=== PATIENT | female | born 1985 | race Caucasian/White ===

== ENCOUNTER 2016-10-21 13:04 | Emergency (ER) | payer OTHER ==
[~2016-10-21] VITALS: Ht 160 cm; Wt 72.6 kg
[~2016-10-21 13:04] MED LIST: ACET50TA PO; IBUP60TA PO; PREN1TAB11 PO; ZYRT10CA PO
[2016-10-21] MEDS ORDERED: NS 1,000 ML IV ONE (14:15)
[2016-10-21 14:41] LABS: BASO % 0.2 % (0.0-1.0); EOS # 0.2 K/mm3 (0.0-0.50); EOS % 3.2 % (0.0-3.0); LARGE UNSTAINED CELL # 0.1 K/mm3 (0.0-0.4); LARGE UNSTAINED CELL % 1.6 % (0.0-4.0); LYMPH # 1.5 K/mm3 (1.5-6.5); LYMPH % 20.8 % (24.0-44.0); MEAN CORPUSCULAR HEMOGLOBIN 30.7 pg (27.0-33.0); MEAN CORPUSCULAR HGB CONC 33.8 g/dl (32.0-36.5); MEAN CORPUSCULAR VOLUME 90.8 fl (80.0-96.0); MONO # 0.3 K/mm3 (0.0-0.8); MONO % 4.2 % (0.0-5.0); NEUTROPHILS # 5.1 K/mm3 (1.8-7.7); PLATELET COUNT, AUTOMATED 268 k/mm3 (150-450); RED CELL DISTRIBUTION WIDTH 12.5 % (11.5-14.5); WHITE BLOOD COUNT 7.2 K/mm3 (4.0-10.0)
--- NOTE | 2016-10-21 14:48 | REP ---
PELVIC ULTRASOUND: Real-time sonographic evaluation of the pelvis is performed utilizing transabdominal technique. The bladder measures 8.9 x 5.7 x 8.4 cm. The uterus measures 8.3 x 3.8 x 3.9 cm. Endometrial thickness is 3 mm with no endometrial fluid collection. Right ovary measures 4.1 x 3.3 x 3.5 cm and the left ovary 3.3 x 2.4 x 2.2 cm. There is a cystic structure in the right ovary 2.3 x 2.9 x 2.3 cm. There is no other evidence of adnexal mass or free fluid. There is blood flow seen in each ovary with duplex Doppler evaluation with no torsion, RI right ovary is 0.41 and left ovary 0.56. IMPRESSION: Right ovarian cyst with a maximum diameter of 2.9 cm. No torsion or free fluid. Signed by Phi Lares MD 10/21/2016 05:45 P
[2016-10-21 15:04] LABS: CONTROL LINE HCG INT CTR LINE PRESENT
[2016-10-21 15:14] LABS: ALBUMIN 3.8 GM/DL (3.2-5.2); ALBUMIN/GLOBULIN RATIO 1.12 (1.00-1.93); ALKALINE PHOSPHATASE 96 U/L (45-117); ALT/SGPT 46 U/L (12-78); ANION GAP 6 MEQ/L (8-16); AST/SGOT 30 U/L (15-37); BILIRUBIN,DIRECT < 0.1 MG/DL (0.0-0.2); BILIRUBIN,TOTAL 0.3 MG/DL (0.2-1.0); BLOOD UREA NITROGEN 15 MG/DL (7-18); CALCIUM LEVEL 8.5 MG/DL (8.5-10.1); CARBON DIOXIDE LEVEL 29 MEQ/L (21-32); CHLORIDE LEVEL 105 MEQ/L (98-107); GLOMERULAR FILTRATION RATE > 60.0 (>60); GLUCOSE, FASTING 98 MG/DL (70-105); POTASSIUM SERUM 4.2 MEQ/L (3.5-5.1); SODIUM LEVEL 140 MEQ/L (136-145); TOTAL PROTEIN 7.2 GM/DL (6.4-8.2)
[2016-10-21] MEDS ORDERED: NORCO, ANEXSIA 5/325MG TABLET (HYDROcodone/ACETAMINOPHEN) PO ONE (15:30)
[2016-10-21 15:42] VITALS: BP 112/62
== END 2016-10-21 15:49 | disposition home or self-care (01) ==
LOC: M ED 14:03
DX: N83.201 Unspecified ovarian cyst, right side (principal); R19.7 Diarrhea, unspecified; Z88.8 Allergy status to other drugs, medicaments and biological substances

== ENCOUNTER → 2016-10-28 | Outpatient (CLI) | payer OTHER ==
[2016-10-28 19:29] LABS: FREE T4 1.04 NG/DL (0.76-1.46)
[2016-10-31 00:07] LABS: Lyme Disease IgG/IgM Antibodie <0.91 ISR (0.00-0.90); Lyme Disease IgM Ab Quantitati <0.80 index (0.00-0.79)
== END ==
LOC: M SMT 14:56
PROVIDERS: ATTEND Physician Assistant
DX: R63.5 Abnormal weight gain (principal); M25.50 Pain in unspecified joint

== ENCOUNTER → 2017-01-15 | Outpatient (REF) | payer OTHER ==
[~2017-01-15] MED LIST changes: +FOLI1TAB4; +MULTTAB20 PO
[2017-01-15 17:44] LABS: HCG, SERUM QUANTITATIVE 464 MIU/ML
[2017-01-15 17:49] LABS: MEAN CORPUSCULAR HEMOGLOBIN 30.8 pg (27.0-33.0); MEAN CORPUSCULAR HGB CONC 34.5 g/dl (32.0-36.5); MEAN CORPUSCULAR VOLUME 89.1 fl (80.0-96.0); RED CELL DISTRIBUTION WIDTH 12.7 % (11.5-14.5); WHITE BLOOD COUNT 6.3 K/mm3 (4.0-10.0)
[2017-01-17 09:23] LABS: HBsAg Prenatal NEGATIVE (NEGATIVE)
== END ==
LOC: M LAB REF 16:41
PROVIDERS: ATTEND Advanced Practice Midwife
DX: O36.80X0 Pregnancy with inconclusive fetal viability, not applicable or unspecified (principal); Z3A.00 Weeks of gestation of pregnancy not specified

== ENCOUNTER → 2017-02-10 | Outpatient (CLI) | payer OTHER ==
[2017-02-10 18:15] LABS: BASO % 0.4 % (0.0-1.0); EOS # 0.2 K/mm3 (0.0-0.50); EOS % 2.5 % (0.0-3.0); LARGE UNSTAINED CELL # 0.1 K/mm3 (0.0-0.4); LARGE UNSTAINED CELL % 1.4 % (0.0-4.0); LYMPH # 2.1 K/mm3 (1.5-6.5); LYMPH % 25.2 % (24.0-44.0); MEAN CORPUSCULAR HEMOGLOBIN 31.2 pg (27.0-33.0); MEAN CORPUSCULAR HGB CONC 34.4 g/dl (32.0-36.5); MEAN CORPUSCULAR VOLUME 90.9 fl (80.0-96.0); MONO # 0.4 K/mm3 (0.0-0.8); MONO % 4.6 % (0.0-5.0); NEUTROPHILS # 5.1 K/mm3 (1.8-7.7); NEUTROPHILS % 65.9 % (36.0-66.0); PLATELET COUNT, AUTOMATED 270 k/mm3 (150-450); RED CELL DISTRIBUTION WIDTH 12.9 % (11.5-14.5); WHITE BLOOD COUNT 7.7 K/mm3 (4.0-10.0)
[2017-02-12 10:43] LABS: HBsAg Prenatal NEGATIVE (NEGATIVE)
== END ==
LOC: M SMT 11:28
PROVIDERS: ATTEND Advanced Practice Midwife
DX: Z34.81 Encounter for supervision of other normal pregnancy, first trimester (principal)

== ENCOUNTER 2017-03-27 09:07 | Emergency (ER) | payer OTHER ==
[~2017-03-27] VITALS: Ht 160 cm; Wt 77.0 kg
[~2017-03-27 09:07] MED LIST changes: -FOLI1TAB4; -MULTTAB20 PO
[2017-03-27] MEDS ORDERED: FOLI1TAB4 (09:13)
[2017-03-27] MEDS ORDERED: MULTTAB20 PO (09:19)
[2017-03-27] MEDS ORDERED: ONDANSETRON 4MG/2ML VIAL (J2405) IV ONE (11:15)
--- NOTE | 2017-03-27 12:06 | REP ---
Obstetric ultrasound, stat request for cramping: There are no prior studies. Transabdominal imaging is performed. There is a twin diamniotic, monochorionic gestation. The placenta is posterior and grade zero. At the inferior margin of the placenta lies completely across the internal cervical os indicating a complete placenta previa. Twin A: Twin A is in a vertex presentation on the maternal left. The amniotic fluid volume subjectively is normal. Gestational age by the ultrasound today is 15 weeks 2 days. Gestational age by LMP is 14 weeks 5 days. The GALE is 09/20/2017 based on LMP. heart rate is 149 beats per minute. weight is 121 grams phrases 0 pounds, 4 ounces). This is the 70th percentile for 14 weeks 5 days. Twin B: Twin B is in a breech presentation on the maternal right. The amniotic fluid volume subjectively is normal. By the ultrasound today the gestational age is 13 weeks 0 days. By LMP the gestational age is 14 weeks 5 days. GALE based on LMP is 09/20/2017. heart rate is 144 beats per minute. The weight is 103 grams was a 0 pounds, 3 ounces). This is the 30th percentile for 14 weeks 5 days. The maternal adnexa and cul-de-sac are unremarkable. Impression: Diamniotic, monochorionic twin gestation and 14 weeks 5 days gestational age. The placenta is posterior, however the inferior margin of the placenta completely crosses the internal cervical os indicating a complete placenta previa. Signed by Phi Peña MD 03/27/2017 11:58 A
[2017-03-27 12:22] LABS: BASO % 0.1 % (0.0-1.0); EOS % 0.2 % (0.0-3.0); IMMATURE GRANULOCYTE % 0.2 % (0-0); LYMPH # 0.8 10^3/uL (1.5-4.5); LYMPH % 8.7 % (24.0-44.0); MEAN CORPUSCULAR HEMOGLOBIN 30.4 pg (27.0-33.0); MEAN CORPUSCULAR HGB CONC 34.5 g/dl (32.0-36.5); MONO # 0.3 10^3/uL (0.0-0.8); NEUTROPHILS # 7.9 10^3/uL (1.8-7.7); NEUTROPHILS % 87.8 % (36.0-66.0); PLATELET COUNT, AUTOMATED 242 10^3/uL (150-450); RED CELL DISTRIBUTION WIDTH 12.8 % (11.5-14.5)
[2017-03-27] MEDS ORDERED: NS 1,000 ML IV ONE (12:45)
[2017-03-27 13:07] LABS: ALBUMIN 3.2 GM/DL (3.2-5.2); ALBUMIN/GLOBULIN RATIO 0.82 (1.00-1.93); ALKALINE PHOSPHATASE 69 U/L (45-117); ALT/SGPT 26 U/L (12-78); ANION GAP 7 MEQ/L (8-16); AST/SGOT 20 U/L (15-37); BILIRUBIN,TOTAL 0.6 MG/DL (0.2-1.0); BLOOD UREA NITROGEN 8 MG/DL (7-18); CALCIUM LEVEL 8.6 MG/DL (8.5-10.1); CARBON DIOXIDE LEVEL 27 MEQ/L (21-32); CHLORIDE LEVEL 102 MEQ/L (98-107); CREATININE FOR GFR 0.54 MG/DL (0.55-1.02); GLOMERULAR FILTRATION RATE > 60.0 (>60); GLUCOSE, FASTING 83 MG/DL (70-105); HCG, SERUM QUANTITATIVE 55355 MIU/ML; POTASSIUM SERUM 3.6 MEQ/L (3.5-5.1); SODIUM LEVEL 136 MEQ/L (136-145); TOTAL PROTEIN 7.1 GM/DL (6.4-8.2)
[2017-03-27 13:47] VITALS: BP 135/70
== END 2017-03-27 13:52 | disposition home or self-care (01) ==
LOC: M ED 09:07
DX: O99.612 Diseases of the digestive system complicating pregnancy, second trimester (principal); O26.899 Other specified pregnancy related conditions, unspecified trimester; O30.8 Other specified multiple gestation; Z3A.14 14 weeks gestation of pregnancy; Z79.899 Other long term (current) drug therapy; Z88.8 Allergy status to other drugs, medicaments and biological substances
CPT/HCPCS: 76811; 76812; 76817; 80053; 84702; 85025; 96374; 99283; J2405

== ENCOUNTER → 2017-04-08 | Outpatient (CLI) | payer OTHER ==
[~2017-04-08] MED LIST changes: +FOLI1TAB4; +MULTTAB20 PO
== END ==
LOC: M LAB 15:17
PROVIDERS: ATTEND Advanced Practice Midwife
DX: Z36.0 Encounter for antenatal screening for chromosomal anomalies (principal)

== ENCOUNTER → 2017-05-12 | Outpatient (CLI) | payer OTHER ==
[2017-05-12 18:34] LABS: ALBUMIN 2.9 GM/DL (3.2-5.2); ALBUMIN/GLOBULIN RATIO 0.81 (1.00-1.93); BILIRUBIN,DIRECT 0.1 MG/DL (0.0-0.2); BILIRUBIN,TOTAL 0.3 MG/DL (0.2-1.0); TOTAL PROTEIN 6.5 GM/DL (6.4-8.2)
== END ==
LOC: M SMT 13:28
PROVIDERS: ATTEND Obstetrics & Gynecology
DX: O30.032 Twin pregnancy, monochorionic/diamniotic, second trimester (principal)

== ENCOUNTER 2017-05-25 14:07 | Emergency (ER) | payer OTHER ==
[~2017-05-25] VITALS: Ht 160 cm; Wt 80.9 kg
[2017-05-25 14:58] LABS: MEAN CORPUSCULAR HEMOGLOBIN 30.3 pg (27.0-33.0); MEAN CORPUSCULAR HGB CONC 33.4 g/dl (32.0-36.5); MEAN CORPUSCULAR VOLUME 90.6 fl (80.0-96.0); PLATELET COUNT, AUTOMATED 280 10^3/uL (150-450); RED CELL DISTRIBUTION WIDTH 13.2 % (11.5-14.5); WHITE BLOOD COUNT 9.3 10^3/uL (4.0-10.0)
[2017-05-25 15:01] LABS: INR 0.97
[2017-05-25 15:13] LABS: ANION GAP 7 MEQ/L (8-16); BLOOD UREA NITROGEN 9 MG/DL (7-18); CALCIUM LEVEL 8.4 MG/DL (8.5-10.1); CARBON DIOXIDE LEVEL 26 MEQ/L (21-32); CHLORIDE LEVEL 106 MEQ/L (98-107); CREATININE FOR GFR 0.64 MG/DL (0.55-1.02); GLOMERULAR FILTRATION RATE > 60.0 (>60); GLUCOSE, FASTING 83 MG/DL (70-105); POTASSIUM SERUM 3.8 MEQ/L (3.5-5.1); SODIUM LEVEL 139 MEQ/L (136-145)
[2017-05-25 15:17] LABS: VENOUS BASE EXCESS -0.5 (-2.0-2.0); VENOUS O2 SATURATION 62.4 % (60.0-80.0); VENOUS PARTIAL PRESSURE CO2 43.5 mmHg (38.0-50.0); VENOUS PARTIAL PRESSURE O2 34.1 mmHg (30.0-50.0); VENOUS STANDARD HCO3 23.3 MEQ/L; VENOUS TOTAL CO2 26.2 MEQ/L (24.0-28.0)
[2017-05-25 17:47] VITALS: BP 112/69
--- NOTE | 2017-05-25 18:13 | ECGEPIP ---
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
--- NOTE | 2017-05-26 06:03 | REP ---
OB ULTRASOUND: HISTORY: Shared placenta. COMPARISON: 04/25/2017. FETUS A: Biparietal diameter is 5.4 cm corresponding to a gestational age of 22 weeks 4 days. Head circumference is 19.4 cm corresponding to a gestational age of 21 weeks 5 days. Abdominal circumference is 17.7 cm corresponding to a gestational age of 22 weeks 4 days. Femur length is 3.7 cm corresponding to a gestational age of 21 weeks 6 days. The humerus length is 3.4 cm corresponding to a gestational age of 21 weeks 5 days. heart rate is 145 beats per minute. weight is 489 grams. Amniotic fluid index is 4. The visualized anatomy is normal. FETUS B: Biparietal diameter is 5.5 cm corresponding to a gestational age of 22 weeks 5 days. Head circumference is 20.2 cm corresponding to a gestational age of 22 weeks 3 days. Abdominal circumference is 18.1 cm corresponding to a gestational age of 22 weeks 6 days. Femur length is 4 cm corresponding to a gestational age of 23 weeks 0 days. Humerus length is 3.7 cm corresponding to a gestational age of 22 weeks 5 days. heart rate is 147 beats per minute. weight is 544 grams. Amniotic fluid index is 4.1. The visualized anatomy is normal. The placenta is located posterior. There is no placenta previa or abruption. Cervix length is 4.4 cm. IMPRESSION: 1. Twin A vertex presentation. Gestational age by ultrasound is 22 weeks 1 day. There has been appropriate interval growth. Twin B transverse lie with head to the maternal left. Gestational age by ultrasound is 22 weeks 5 days. There has been appropriate interval growth. Signed by Toby Patricio MD 05/26/2017 08:22 A
== END 2017-05-25 17:49 | disposition home or self-care (01) ==
LOC: M ED 14:07
DX: O99.89 Other specified diseases and conditions complicating pregnancy, childbirth and the puerperium (principal); R07.89 Other chest pain; O30.92 Multiple gestation, unspecified, second trimester; Z3A.22 22 weeks gestation of pregnancy; Z79.899 Other long term (current) drug therapy; Z88.8 Allergy status to other drugs, medicaments and biological substances

== ENCOUNTER → 2017-06-19 | Outpatient (CLI) | payer OTHER ==
[2017-06-19 10:40] LABS: MEAN CORPUSCULAR HEMOGLOBIN 31.4 pg (27.0-33.0); MEAN CORPUSCULAR HGB CONC 33.8 g/dl (32.0-36.5); MEAN CORPUSCULAR VOLUME 92.7 fl (80.0-96.0); PLATELET COUNT, AUTOMATED 267 10^3/uL (150-450); RED CELL DISTRIBUTION WIDTH 13.3 % (11.5-14.5)
[2017-06-20 09:24] LABS: WHITE BLOOD COUNT 8.4 10^3/uL (4.0-10.0)
== END ==
LOC: M LAB 08:41
DX: Z34.02 Encounter for supervision of normal first pregnancy, second trimester (principal)

== ENCOUNTER → 2017-07-09 | Outpatient (CLI) | payer OTHER | LOC: M SMT 09:35 | DX: O30.033 Twin pregnancy, monochorionic/diamniotic, third trimester (principal); Z3A.28 28 weeks gestation of pregnancy | CPT/HCPCS: 76811 ==

== ENCOUNTER 2017-07-10 17:54 | Outpatient (CLI) | payer OTHER ==
[2017-07-10] MEDS: LACTATED RINGER'S 1000 ML IV (18:44)
[2017-07-10 19:01] LABS: BASO % 0.2 % (0.0-1.0); EOS # 0.1 10^3/uL (0.0-0.50); EOS % 0.8 % (0.0-3.0); HEMOGLOBIN 12.7 g/dl (12.0-16.0); IMMATURE GRANULOCYTE # 0.1 10^3/uL (0-0); IMMATURE GRANULOCYTE % 0.4 % (0-0); LYMPH % 8.7 % (24.0-44.0); MEAN CORPUSCULAR HEMOGLOBIN 30.5 pg (27.0-33.0); MEAN CORPUSCULAR HGB CONC 34.3 g/dl (32.0-36.5); MEAN CORPUSCULAR VOLUME 88.7 fl (80.0-96.0); MONO # 0.6 10^3/uL (0.0-0.8); MONO % 4.8 % (0.0-5.0); NEUTROPHILS # 9.8 10^3/uL (1.8-7.7); NEUTROPHILS % 85.1 % (36.0-66.0); PLATELET COUNT, AUTOMATED 227 10^3/uL (150-450); RED BLOOD COUNT 4.17 10^6/uL (4.00-5.40); RED CELL DISTRIBUTION WIDTH 13.3 % (11.5-14.5); WHITE BLOOD COUNT 11.5 10^3/uL (4.0-10.0)
[2017-07-10] MEDS: ONDANSETRON 4MG/2ML VIAL (J2405) IV (19:17)
[2017-07-10 19:38] LABS: ALBUMIN 2.8 GM/DL (3.2-5.2); ALKALINE PHOSPHATASE 111 U/L (45-117); ALT/SGPT 19 U/L (12-78); ANION GAP 8 MEQ/L (8-16); AST/SGOT 25 U/L (7-37); BILIRUBIN,TOTAL 0.5 MG/DL (0.2-1.0); BLOOD UREA NITROGEN 8 MG/DL (7-18); CALCIUM LEVEL 7.8 MG/DL (8.5-10.1); CARBON DIOXIDE LEVEL 22 MEQ/L (21-32); CHLORIDE LEVEL 107 MEQ/L (98-107); CREATININE FOR GFR 0.46 MG/DL (0.55-1.02); GLOMERULAR FILTRATION RATE > 60.0 (>60); GLUCOSE, FASTING 92 MG/DL (70-105); POTASSIUM SERUM 3.8 MEQ/L (3.5-5.1); SODIUM LEVEL 137 MEQ/L (136-145); TOTAL PROTEIN 6.3 GM/DL (6.4-8.2)
[2017-07-10] MEDS: LR 1,000 ML IV (19:45)
[2017-07-10] MEDS: TERBUTALINE SULFATE 1 MG/ML VIAL (J3105) SC (20:53)
[2017-07-10] MEDS: ACETAMINOPHEN 500 MG TAB PO (22:04)
[2017-07-10] MEDS ORDERED: TERBUTALINE SULFATE 1 MG/ML VIAL (J3105) SC (22:30)
[2017-07-11] MEDS: ONDANSETRON 4MG/2ML VIAL (J2405) IV (01:31)
[2017-07-11] MEDS: LR 1,000 ML IV (03:50)
== END 2017-07-11 08:18 | disposition home or self-care (01) ==
LOC: M LDO 17:54
DX: O99.89 Other specified diseases and conditions complicating pregnancy, childbirth and the puerperium (principal); O30.033 Twin pregnancy, monochorionic/diamniotic, third trimester; O99.613 Diseases of the digestive system complicating pregnancy, third trimester; Z3A.29 29 weeks gestation of pregnancy; O99.343 Other mental disorders complicating pregnancy, third trimester; O47.03 False labor before 37 completed weeks of gestation, third trimester; A08.4 Viral intestinal infection, unspecified; Z88.8 Allergy status to other drugs, medicaments and biological substances
CPT/HCPCS: 96372

== ENCOUNTER 2017-07-13 03:02 | Outpatient (CLI) | payer OTHER ==
[2017-07-13] MEDS ORDERED: TERBUTALINE SULFATE 1 MG/ML VIAL (J3105) As Ordered (03:50)
[2017-07-13] MEDS: TERBUTALINE SULFATE 1 MG/ML VIAL (J3105) SC (03:59)
== END 2017-07-13 07:20 | disposition home or self-care (01) ==
LOC: M LDO 03:02
DX: O47.03 False labor before 37 completed weeks of gestation, third trimester (principal); O30.033 Twin pregnancy, monochorionic/diamniotic, third trimester; Z3A.30 30 weeks gestation of pregnancy; Z88.8 Allergy status to other drugs, medicaments and biological substances
CPT/HCPCS: 96372

== ENCOUNTER → 2017-07-23 | Outpatient (CLI) | payer OTHER | LOC: M SMT 10:00 | DX: O30.033 Twin pregnancy, monochorionic/diamniotic, third trimester (principal) | CPT/HCPCS: 76811 ==

== ENCOUNTER → 2017-08-06 | Outpatient (CLI) | payer OTHER | LOC: M SMT 14:13 | DX: O30.033 Twin pregnancy, monochorionic/diamniotic, third trimester (principal); Z3A.33 33 weeks gestation of pregnancy | CPT/HCPCS: 76811 ==

== ENCOUNTER 2017-08-10 14:51 | Outpatient (CLI) | payer OTHER ==
[2017-08-10] MEDS: ONDANSETRON 4 MG ORAL DISINTEGRATING TAB (S0181) PO ×2 (15:49)
== END 2017-08-10 16:30 | disposition home or self-care (01) ==
LOC: M LDO 14:51
DX: O36.8132 Decreased fetal movements, third trimester, fetus 2 (principal); Z3A.34 34 weeks gestation of pregnancy; O30.033 Twin pregnancy, monochorionic/diamniotic, third trimester; R42 Dizziness and giddiness; R11.0 Nausea; R53.83 Other fatigue
CPT/HCPCS: 59025

== ENCOUNTER → 2017-08-13 | Outpatient (REF) | payer OTHER | LOC: M LAB REF 12:55 | DX: Z34.83 Encounter for supervision of other normal pregnancy, third trimester (principal) ==

== ENCOUNTER 2017-08-16 13:28 | Outpatient (CLI) | payer OTHER ==
[2017-08-16] MEDS: BETAMETHASONE SOLUSPAN 6MG/ML INJ 5ML (J0702) IM ×3 (14:18)
== END 2017-08-16 14:40 | disposition home or self-care (01) ==
LOC: M LDO 13:28
DX: O30.033 Twin pregnancy, monochorionic/diamniotic, third trimester (principal); Z3A.35 35 weeks gestation of pregnancy
CPT/HCPCS: J0702

== ENCOUNTER 2017-08-17 14:16 | Outpatient (CLI) | payer OTHER ==
[2017-08-17] MEDS: BETAMETHASONE SOLUSPAN 6MG/ML INJ 5ML (J0702) IM (14:51)
== END 2017-08-17 15:15 | disposition home or self-care (01) ==
LOC: M LDO 14:16
DX: O30.033 Twin pregnancy, monochorionic/diamniotic, third trimester (principal); Z3A.34 34 weeks gestation of pregnancy
CPT/HCPCS: J0702

== ENCOUNTER → 2017-08-20 | Outpatient (CLI) | payer OTHER | LOC: M SMT 09:48 | DX: O30.033 Twin pregnancy, monochorionic/diamniotic, third trimester (principal); Z3A.35 35 weeks gestation of pregnancy | CPT/HCPCS: 76812 ==

== ENCOUNTER 2017-08-26 05:31 | Inpatient (IN) | payer OTHER ==
[2017-08-26] MEDS: LR 1,000 ML IV ×3 (06:00→09:30)
[2017-08-26 06:19] LABS: HEMATOCRIT 37.5 % (36.0-47.0); HEMOGLOBIN 12.9 g/dl (12.0-16.0); MEAN CORPUSCULAR HEMOGLOBIN 30.8 pg (27.0-33.0); MEAN CORPUSCULAR HGB CONC 34.4 g/dl (32.0-36.5); MEAN CORPUSCULAR VOLUME 89.5 fl (80.0-96.0); PLATELET COUNT, AUTOMATED 229 10^3/uL (150-450); RED BLOOD COUNT 4.19 10^6/uL (4.00-5.40); RED CELL DISTRIBUTION WIDTH 13.7 % (11.5-14.5); WHITE BLOOD COUNT 10.6 10^3/uL (4.0-10.0)
[2017-08-26] MEDS: BICITRA 30ML SOLN UDC PO (06:45)
[2017-08-26] MEDS ORDERED: LR 1,000 ML IV (07:00)
[2017-08-26] MEDS ORDERED: OXYTOCIN INJ 10 UNITS/ML VIAL (J2590) As Ordered ×3 (07:40)
[2017-08-26] MEDS ORDERED: MORPHINE PRES-FREE INJ 10 MG/10 ML VIAL (J2274) As Ordered (07:40)
[2017-08-26] MEDS ORDERED: NALOXONE INJ 0.4 MG/1 ML VIAL (J2310) IV ×2 (08:07)
[2017-08-26] MEDS ORDERED: ONDANSETRON 4MG/2ML VIAL (J2405) IV ×3 (08:07→09:30)
[2017-08-26] MEDS ORDERED: NALBUPHINE HCL 10 MG/ML AMP (J2300) IV (08:07)
[2017-08-26] MEDS ORDERED: PHENYLephrine HCL 500 MCG/5 ML (100MCG/ML) SYRINGE (J2370) As Ordered (08:15)
[2017-08-26] MEDS ORDERED: ePHEDrine SULFATE 25 MG/5 ML(5MG/ML) SYRINGE As Ordered ×2 (08:15→08:20)
[2017-08-26] MEDS ORDERED: ONDANSETRON 4MG/2ML VIAL (J2405) As Ordered (08:42)
[2017-08-26] MEDS ORDERED: PROMETHAZINE 25 MG TAB PO (09:15)
[2017-08-26] MEDS ORDERED: MORPHINE 4 MG/ML 1ML VIAL (J2270) IV (09:15)
[2017-08-26] MEDS ORDERED: PERCOCET 5MG/325MG TAB PO (09:30)
[2017-08-26] MEDS ORDERED: fentaNYL 100 MCG/2 ML INJECTION (J3010) IV (09:30)
[2017-08-26] MEDS: RHOGAM 300 MCG (1500 IU) INJ (J2790) IM (12:24)
[2017-08-26] MEDS: MEASLES,MUMPS,RUBELLA VACCINE INJ (MMR-II) (90707) SC (12:25)
[2017-08-26] MEDS: METOCLOPRAMIDE INJ 10MG/2ML VIAL (J2765) IV (12:42)
[2017-08-26] MEDS: IBUPROFEN 800 MG TAB PO ×2 (12:50→20:58)
[2017-08-26] MEDS: PERCOCET 5MG/325MG TAB PO ×2 (16:23→21:02)
[2017-08-26] MEDS ORDERED: SLF 3 ML SYR IV (16:30)
[2017-08-26] MEDS: DOCUSATE SODIUM 100 MG CAP PO (20:58)
[2017-08-26] MEDS: SLF 3 ML SYR IV (21:12)
[2017-08-27] MEDS: PERCOCET 5MG/325MG TAB PO ×5 (03:22→20:52)
[2017-08-27] MEDS: IBUPROFEN 800 MG TAB PO ×3 (04:28→20:30)
[2017-08-27] MEDS: SLF 3 ML SYR IV ×4 (06:00→22:07)
[2017-08-27 06:39] LABS: HEMATOCRIT 36.8 % (36.0-47.0); HEMOGLOBIN 12.4 g/dl (12.0-16.0); MEAN CORPUSCULAR HGB CONC 33.7 g/dl (32.0-36.5); PLATELET COUNT, AUTOMATED 185 10^3/uL (150-450); RED CELL DISTRIBUTION WIDTH 13.8 % (11.5-14.5); WHITE BLOOD COUNT 11.7 10^3/uL (4.0-10.0)
[2017-08-27] MEDS: DOCUSATE SODIUM 100 MG CAP PO ×2 (08:04→20:53)
[2017-08-27] MEDS: PRENATAL VITAMINS CHEWABLE TABLET PO (08:04)
[2017-08-28] MEDS: PERCOCET 5MG/325MG TAB PO ×2 (01:56→05:57)
[2017-08-28] MEDS: IBUPROFEN 800 MG TAB PO ×2 (04:30→05:57)
[2017-08-28] MEDS: DOCUSATE SODIUM 100 MG CAP PO (08:32)
[2017-08-28] MEDS: PRENATAL VITAMINS CHEWABLE TABLET PO (08:32)
== END 2017-08-28 11:30 | disposition home or self-care (01) | DRG 765 ==
LOC: M LDI 05:31 → M OBS 11:30
PROVIDERS: Obstetrics & Gynecology
PROC: 10D00Z1 Extraction of Products of Conception, Low, Open Approach (ICD-10-PCS; principal; 2017-08-26 07:30)
DX: O30.033 Twin pregnancy, monochorionic/diamniotic, third trimester (principal); K83.1 Obstruction of bile duct; O26.62 Liver and biliary tract disorders in childbirth; Z37.2 Twins, both liveborn; O34.211 Maternal care for low transverse scar from previous cesarean delivery; Z3A.36 36 weeks gestation of pregnancy

== ENCOUNTER → 2017-09-04 | Outpatient (REF) | payer OTHER | LOC: M LAB REF 12:56 | DX: R35.0 Frequency of micturition (principal) ==

== ENCOUNTER 2017-11-28 10:08 | Emergency (ER) | payer OTHER ==
[2017-11-28] MEDS: ONDANSETRON 4 MG ORAL DISINTEGRATING TAB (Q0162 PER 1MG) PO (11:04)
[2017-11-28] MEDS: METHOCARBAMOL 500 MG TAB PO (11:04)
[2017-11-28] MEDS: MORPHINE 10 MG/ML 1ML VIAL (J2270) IM (11:05)
[2017-11-28] MEDS: IBUPROFEN 600 MG TAB PO (11:05)
== END 2017-11-28 12:01 | disposition home or self-care (01) ==
LOC: M ED 10:08
DX: S20.221A Contusion of right back wall of thorax, initial encounter (principal); S20.222A Contusion of left back wall of thorax, initial encounter; S16.1XXA Strain of muscle, fascia and tendon at neck level, initial encounter; W10.8XXA Fall (on) (from) other stairs and steps, initial encounter; Y92.098 Other place in other non-institutional residence as the place of occurrence of the external cause; K21.9 Gastro-esophageal reflux disease without esophagitis; F32.9 Major depressive disorder, single episode, unspecified; Z88.5 Allergy status to narcotic agent; Z79.899 Other long term (current) drug therapy
CPT/HCPCS: Q0162

== ENCOUNTER → 2018-01-02 | Outpatient (CLI) | payer OTHER ==
[2018-01-02 17:00] LABS: URIC ACID 3.5 MG/DL (2.6-6.0)
[2018-01-02 17:00] LABS: C REACTIVE PROTEIN QUANTITATIV < 0.30 MG/DL (0.00-0.30); FREE T4 0.89 NG/DL (0.76-1.46); THYROID STIMULATING HORMONE 0.461 uIU/ML (0.358-3.740)
[2018-01-02 17:03] LABS: THYROID PEROXIDASE ANTIBODY < 28.0 U/ML (<60.0)
[2018-01-02 17:07] LABS: ERYTHROCYTE SEDIMENTATION RATE 3 mm/hr (0-20)
[2018-01-06 09:24] LABS: Lyme Disease IgG/IgM Antibodie <0.91 ISR (0.00-0.90); Lyme Disease IgM Ab Quantitati <0.80 index (0.00-0.79)
== END ==
LOC: M LAB 15:30
DX: M79.674 Pain in right toe(s) (principal); L65.9 Nonscarring hair loss, unspecified
CPT/HCPCS: 73630

== ENCOUNTER 2018-02-25 16:31 | Emergency (ER) | payer OTHER | END 2018-02-25 17:29 | disposition left against medical advice (07) | LOC: M ED 16:31 | DX: Z53.21 Procedure and treatment not carried out due to patient leaving prior to being seen by health care provider (principal) ==